=== PATIENT | female | born 1965 | race Caucasian/White ===

== ENCOUNTER 2017-10-12 18:23 | Emergency (ER) | payer MEDICARE ==
[~2017-10-12] VITALS: Ht 167.6 cm; Wt 113.4 kg
[~2017-10-12 18:23] MED LIST: BUPROBAN150 MG PO; CLONAZEPAM0.5 MG PO; CYCLOBENZAPRINE10 MG PO; CYMBALTA60 MG PO; DEPAKOTE ER250 MG PO; DIPHENOXYLATE-1 EAC2; DYAZIDE 37.5-21 EACH; EFFEXOR XR75 MG PO; ELMIRON100 MG; FLONASE; GELNIQUE30 GM; GELNIQUE30 GM TOP; LEFLUNOMIDE20 MG PO; LISINOPRIL-HCT1 EACH PO; LISINOPRIL40 MG PO; MACROBID 100MG100 MG; MIRALAX17 G1; MYRBETRIQ25 MG PO; MYRBETRIQ50 MG PO; NEURONTIN300 MG PO; NEXIUM40 MG PO; NORCO 10-325 T1 EACH PO; PLAQUENIL200 MG PO; PROAIR HFA INH8.5 GM INH; SEROQUEL50 MG PO; TYLENOL # 31 EA PO; Z BUPROPION HCL MT; Z REQUIP; Z.0.ACYCLOVIR400 MG; Z.0.ACYCLOVIR400 MG MT; Z.0.AMBIEN10 MG; Z.0.BENICAR40 MG; Z.0.BENICAR40 MG MT; Z.0.COLACE100 MG MT; Z.0.CYMBALTA30 MG MT; Z.0.CYMBALTA60 MG; Z.0.CYMBALTA60 MG MT; Z.0.DICYCLOMINE HCL2; Z.0.DICYCLOMINE HCL2 MT; Z.0.ELMIRON100 MG; Z.0.ELMIRON100 MG MT; Z.0.ENABLEX15 MG; Z.0.ENABLEX15 MG MT; Z.0.GABAPENTIN300 MG MT; Z.0.NEURONTIN300 MG; Z.0.NORCO 10-325 T1; Z.0.NORCO 10-325 T1 MT; Z.0.NORVASC5 MG; Z.0.PROTONIX40 MG; Z.0.TORADOL10 MG; Z.0.VOLTAREN100 GM; Z.0.VOLTAREN100 GM TOP; Z.0.WELLBUTRIN SR150; Z.1.TIZANIDINE HCL4; ZANAFLEX4 M1 PO; [UNRECOGNIZED DRUG - OTHER]; [UNRECOGNIZED DRUG - OTHER]; [UNRECOGNIZED DRUG - OTHER]; [UNRECOGNIZED DRUG - OTHER] PR
[2017-10-12 19:21] LABS: BILIRUBIN,URINE NEGATIVE (NEGATIVE); KETONES,URINE NEGATIVE (NEGATIVE); LEUKOCYTE ESTERASE ,URINE NEGATIVE (NEGATIVE); NITRITE,URINE NEGATIVE (NEGATIVE); PROTEIN,URINE DIPSTICK NEGATIVE (NEGATIVE); URINE UROBILINOGEN 0.2 mg/dL (0.2 - 1)
[2017-10-12 19:22] LABS: CLARITY,URINE CLEAR (CLEAR); COLOR,URINE YELLOW (YELLOW)
[2017-10-12 19:34] LABS: BACTERIA,URINE FEW /HPF; EPITHELIAL CELLS,URINE FEW /LPF; MUCUS,URINE MODERATE (RARE); RBC,URINE 0-5 /HPF (0-5); WBC,URINE (MAN) 0-5 /HPF (0-5)
[2017-10-30] MEDS ORDERED: SKELAXIN800 MG PO (15:56)
[2017-10-30] MEDS ORDERED: LEVAQUIN500 MG PO (15:56)
== END 2017-10-12 22:37 | disposition home or self-care (01) ==
LOC: ER 18:23
DX: N30.20 Other chronic cystitis without hematuria (principal)
CPT/HCPCS: 81001; 87086; 99283

== ENCOUNTER → 2017-10-31 | Day surgery (SDC) | payer MEDICARE, OTHER ==
[2017-10-30 16:25] LABS: ANION GAP 12.8 mmol/L (8-16); CALCIUM 9.9 mg/dL (8.4-10.2); CREATININE, SERUM 1.34 mg/dL (0.57-1.11); POTASSIUM 3.8 mmol/L (3.5-5.1)
[~2017-10-31] MED LIST changes: +BELLADONNA/OPIUM 60 MG SUPP PR ONE; +BOTULINUM TOXIN TYPE A 100 UNIT VIAL IM ONE; +DEXAMETHASONE SOD PHOS INJ 4 MG/ML VIAL ONE; +FENTANYL CITRATE/PF 100MCG/2 ML INJ ONE; +GENTAMICIN 80MG/NS 100 ML 200 ML IV ONE; +IOPAMIDOL 610MG/1ML 300 MG/ML VIAL IV ONE; +LEVAQUIN500 MG PO; +LIDOCAINE HCL 2% LOCAL INJ 5 ML SDV VIAL INJ ONE; +MIDAZOLAM HCL 2 MG/2 ML VIAL ONE; +ONDANSETRON HCL INJ 2 MG/ML VIAL ONE; +PROPOFOL IV EMULSION 10 MG/ML 20 ML VIAL ONE; +SEVOFLURANE INHAL SOLN 250 ML PEN BTL ONE; +SKELAXIN800 MG PO
--- NOTE | 2017-12-18 06:26 | Operative Report ---
DATE OF PROCEDURE: October 31, 2017 PREOPERATIVE DIAGNOSES 1. Refractory urge incontinence. 2. Urinary tract infections. 3. Mild rectocele. 4. Atrophic (senile) vaginitis. POSTOPERATIVE DIAGNOSES 1. Refractory urge incontinence. 2. Urinary tract infections. 3. Mild rectocele. 4. Atrophic (senile) vaginitis. OPERATIONS PERFORMED 1. Cystourethroscopy with bilateral ureteral catheterization and retrograde ureteropyelography (separate procedure performed to evaluate the upper tracts in light of the recurrent urinary tract infections). 2. Interpretation of retrograde ureteropyelography. 3. Supervision of fluoroscopy. No radiologist present. 4. Cystourethroscopy with intravesical injection of Botox (separate procedure performed for the refractory incontinence). 1. Pelvic examination under anesthesia. ANESTHESIA: General. COMPLICATIONS: None. CLINICAL SUMMARY: Antionette Bearden is a 52-year-old woman with the above preoperative diagnoses. She desires another Botox treatment. She is aware of the risks of bleeding, infection, injury to adjacent structures, need for additional procedures, and elected to proceed. OPERATIVE PROCEDURE IN DETAIL: Informed consent was verified. Antionette Bearden was properly identified, taken to the operating room, placed on the cystoscopy table in supine position. Anesthesia was uneventfully begun. The patient was then carefully gently repositioned in the dorsal lithotomy position with all pressure points well padded. Her genitalia were prepared and draped in the usual sterile fashion. The 22.5-Colombian cystoscope sheath with obturator in place was atraumatically inserted into the patient's urethra and bladder was drained. Panendoscopy of the urinary bladder revealed no suspicious mucosal lesions, no tumors, no stones, and no diverticula. Normally positioned and configured ureteral orifices were identified. There were some mild trabeculations. A ureteral catheter was used to cannulate each ureter and retrograde ureteropyelograms were performed. Interpretation of retrograde ureteropyelography: Contrast was instilled in retrograde fashion bilaterally. There were no tumors, no stones, and no diverticula. Unobstructed drainage was observed bilaterally fluoroscopically. Botox was constituted in sterile saline and injected in equal aliquots of 1 mL each throughout the supratrigonal bladder. There was no significant bleeding. The patient's bladder was then drained. Cystoscope was withdrawn. Pelvic examination under anesthesia revealed a mild rectocele and atrophic (senile) vaginitis. There were no suspicious mucosal lesions. There were no palpable pelvic masses that could be appreciated. The patient was then uneventfully reversed from anesthesia and taken to the recovery room in stable condition. Explicit postoperative instructions were given. We will follow the patient up in the office. Job#: [id number] CF
== END | disposition home or self-care (01) ==
LOC: OR 08:13
PROVIDERS: ATTEND Urology
DX: N39.41 Urge incontinence (principal); N39.0 Urinary tract infection, site not specified; N32.89 Other specified disorders of bladder; N81.6 Rectocele; N95.2 Postmenopausal atrophic vaginitis; I10 Essential (primary) hypertension; E66.9 Obesity, unspecified; G47.33 Obstructive sleep apnea (adult) (pediatric); K58.9 Irritable bowel syndrome, unspecified; F41.9 Anxiety disorder, unspecified; Z01.810 Encounter for preprocedural cardiovascular examination; Z01.812 Encounter for preprocedural laboratory examination
CPT/HCPCS: 36415; 52005; 52287; 74420; 80048; 93005; J0587; J1100; J1580; J2001; J2250; J2405; Q9967

== ENCOUNTER → 2018-03-01 | Day surgery (SDC) | payer OTHER ==
[2018-02-28 12:07] LABS: ANION GAP 14.6 mmol/L (8-16); CALCIUM 9.7 mg/dL (8.4-10.2); CREATININE, SERUM 0.97 mg/dL (0.57-1.11); POTASSIUM 4.6 mmol/L (3.5-5.1)
[~2018-03-01] MED LIST changes: +ACETAMINOPHEN 1000 MG/100 ML IV ONE; +BACITRACIN 50,000 UNIT VIAL ONE; -BOTULINUM TOXIN TYPE A 100 UNIT VIAL IM ONE; +BUPIVACAINE 0.25%/EPI 30ML SDV INJ ONE; +CEFOXITIN SOD 1 GM VIAL ONE; +EMBEDA PO; +ESTROGENS CONJUGATED VAGINAL CR 45 GM TUBE PV ONE; +HORIZANT600 MG PO; +INDERAL LA60 MG PO; +METHYLENE BLUE 1% INJ 10 ML VIAL INJ ONE; +PRILOSEC10 M1 PO; +ROCURONIUM BROMIDE 10 MG/ML 5ML VIAL ONE
--- NOTE | 2018-04-10 03:34 | Operative Report ---
DATE OF PROCEDURE: March 01, 2018 PREOPERATIVE DIAGNOSES: 1. Stress-type urinary incontinence. 2. Urinary tract infections. POSTOPERATIVE DIAGNOSES: 1. Stress-type urinary incontinence. 2. Urinary tract infections. PROCEDURES PERFORMED: 1. Implantation of mid urethral sling (separate procedure performed for the stress-type incontinence). 2. Cystourethroscopy with bilateral ureteral catheterization and retrograde ureteropyelography (separate procedure performed for the urinary tract infections). 3. Interpretation of retrograde ureteropyelography. 4. Supervision of fluoroscopy. No radiologist present. GENERAL ROAD SUPERVISOR: Lynnette Dunne MD. COMPLICATIONS: None. CLINICAL SUMMARY: Antionette Bearden is a 53-year-old woman with very complicated urological history. She has had multiple InterStim implants. She has also had urinary tract infections. She is believed to not void normally. She was believed to have some degree of neurogenic bladder. She is prepared to do intermittent catheterizations for incomplete emptying if it should occur. She is tired of being wet and wants to try a mid urethral sling. She is aware of the risks of bleeding, infection, injury to adjacent structures, need for additional procedures and elected to proceed. Urodynamic study revealed a dysfunctional voider. OPERATIVE PROCEDURE IN DETAIL: Informed consent was verified. Antionette Bearden was properly identified, taken to the operating room, placed on the operating table in supine position. Anesthesia was uneventfully begun. The patient was then carefully and gently repositioned in the dorsal lithotomy position with all pressure points well padded. Her genitalia and abdomen were shaved and perineum were shaved, prepared and draped in usual sterile fashion. Labial stay sutures were placed. A Fleming catheter was placed. Marcaine with epinephrine was utilized to infiltrate submucosally along the anterior bladder wall. A midline incision was made overlying the urethra. We then developed bilateral vaginal wall small flaps that would accommodate the finger. Once this was performed, we were able to get posterior to both obturator foramina. We then utilized Marcaine with epinephrine to infiltrate our path. Stab wounds were made in each groin crease. We then utilized the Coloplast TOT system. We first placed the needle on the left hand side and then the right hand side. Care was taken to hug the medial surface of the obturator foramen and from the inside, a finger was utilized to guide the needle out of the incision thus ensuring no injury to the bladder or any other organ was performed. After bringing the needle out through the midline incision, we placed one end of the sling material and brought it out through that stab incision. An identical procedure was performed on the right hand side. The sling was then brought into position at the level of the mid urethra. Care was taken to place a clamp between the urethra and the sling thus ensuring a non-lifting, non-constricting, non-obstructing sling. Copious irrigation was performed. A midline incision was then approximated with interrupted absorbable sutures. The sling excess was cut to the level just below the stab incisions in the groin and those incisions were approximated with subcuticular suture. The Fleming catheter was removed. The cystoscope was inserted atraumatically with the obturator. Panendoscopy revealed grade 1 to 2 trabeculations, but no tumors, no stones and no diverticula. Normally positioned and configured ureteral orifices were identified. Ureteral catheter was used to cannulate each ureter and retrograde ureteropyelograms were performed. Interpretation of retrograde ureteropyelography: Contrast was instilled in retrograde fashion bilaterally. There were no tumors, no stones and no diverticula. Unobstructed drainage was observed bilaterally fluoroscopically. The patient's bladder was drained. The cystoscope was withdrawn. Vaginal packing was placed. Labial stay sutures were removed and the patient was uneventfully reversed from anesthesia and taken to recovery room in stable condition. There were no complications during the procedure. She tolerated the procedure well. The procedure was made more complicated by the patient's significant morbid obesity. We will continue to monitor the patient closely. We will plan on following the patient up with bladder residual checks and of course follow the patient on indefinite basis for her complex urological condition. Job#: [id number] JOSE ALEJANDRO
== END | disposition home or self-care (01) ==
LOC: OR 09:38
PROVIDERS: ATTEND Urology
DX: N39.3 Stress incontinence (female) (male) (principal); N39.0 Urinary tract infection, site not specified; N32.89 Other specified disorders of bladder; E66.01 Morbid (severe) obesity due to excess calories; G89.29 Other chronic pain; G47.33 Obstructive sleep apnea (adult) (pediatric); I10 Essential (primary) hypertension; K58.9 Irritable bowel syndrome, unspecified; K21.9 Gastro-esophageal reflux disease without esophagitis; F41.9 Anxiety disorder, unspecified; F31.9 Bipolar disorder, unspecified; Z01.810 Encounter for preprocedural cardiovascular examination; Z01.812 Encounter for preprocedural laboratory examination
CPT/HCPCS: 36415; 52005; 57288; 74420; 80048; 93005; C1758; C1763; J0694; J1100; J1580; J2001; J2250; J2405; Q9967

== ENCOUNTER → 2018-12-04 | Day surgery (SDC) | payer MEDICARE, OTHER ==
[~2018-12-04] MED LIST changes: -ACETAMINOPHEN 1000 MG/100 ML IV ONE; -BACITRACIN 50,000 UNIT VIAL ONE; +BELLADONNA/OPIUM 30 MG SUPP RC ONE; -BELLADONNA/OPIUM 60 MG SUPP PR ONE; +BOTULINUM TOXIN TYPE A 100 UNIT VIAL IM ONE; -BUPIVACAINE 0.25%/EPI 30ML SDV INJ ONE; -CEFOXITIN SOD 1 GM VIAL ONE; +ELMIRON100 MG PO; -ESTROGENS CONJUGATED VAGINAL CR 45 GM TUBE PV ONE; +GENTAMICIN 80MG/NS 100 ML 100 ML IV ONE; -GENTAMICIN 80MG/NS 100 ML 200 ML IV ONE; +INFLECTRA INJ; +LEVOFLOXACIN 500MG/D5W 100ML 100 ML IV ONE; +LIDOCAINE TOP; -METHYLENE BLUE 1% INJ 10 ML VIAL INJ ONE; -MIDAZOLAM HCL 2 MG/2 ML VIAL ONE; +MOBIC7.5 MG PO; +MORPHINE SULFATE INJ 4 MG/ML INJ 1ML ONE; -ONDANSETRON HCL INJ 2 MG/ML VIAL ONE; +ONDANSETRON HCL INJ 2MG/ML 2ML 2 MG/ML VIAL ONE; -ROCURONIUM BROMIDE 10 MG/ML 5ML VIAL ONE; +SPIRONOLACTONE25 MG PO; +VITAMIN D PO
--- OUTSIDE RECORDS SUMMARY | 2018-12-04 09:43 | XMS REPORT | Clinical Summary ---
Author Author [facility] Address Unknown Phone Unavailable Care Team Providers Care Residential Driver Name Role Phone Monica Lee MD PCP Allergies Not on File Medications Not on file Active Problems Not on file Encounters Care Team Description Date Type Specialty Mackenzie Chaudhari MD Polyneuropathy in other diseases classified elsewhere (HCC) (Primary Dx) 11/11/2018 Transcribe Physical Therapy Orders after 12/03/2017 Social History Date Tobacco Use Types Packs/Day Years Used Never Assessed Sex Assigned at Date Recorded Not on file Industry Job Start Date Occupation Not on file Not on file Not on file Travel End Travel History Travel Start No recent travel history available. Last Filed Vital Signs Not on file Plan of Treatment Health Maintenance Due Date Last Done Comments CERVICAL CANCER SCREENING 01/22/1985 BREAST CANCER SCREENING 01/22/2014 COLON CANCER SCREENING 01/22/2014 SHINGLES VACCINES (1 of 01/22/2014 2) INFLUENZA VACCINE 05/22/2018 Results Not on fileafter 12/03/2017 Insurance Payer Benefit Subscriber ID Type Phone Address Plan / Group UHC MEDICARE UHC DUAL xxxxxxxxx HMO COMPLETE [facility]
--- OUTSIDE RECORDS SUMMARY | 2018-12-04 09:43 | XMS REPORT ---
[facility] Address Unknown Phone Unavailable Care Team Providers Care Cell Plasterer Name Role Phone Unavailable Unavailable Payers Payer Name Policy Type Policy Number Effective Date Expiration Date Problems This patient has no known problems. Allergies, Adverse Reactions, Alerts Allergy Name Allergy Type Status Severity Reaction(s) Onset Date Inactive Date Treating Clinician Comments potassium DA Active U 2017-11-02 00:00:00 ibuprofen DA Active U 2017-11-02 00:00:00 cephalexin DA Active SV 2017-11-02 00:00:00 Medications This patient has no known medications.
[2018-12-04 13:20] VITALS: BP 129/83
--- NOTE | 2018-12-23 08:47 | Operative Report ---
DATE OF PROCEDURE: 12/04/2018 SURGEON: Junaid Dunne MD PREOPERATIVE DIAGNOSES: 1. Refractory urge incontinence. 2. Neurogenic bladder. 3. Urinary tract infections. POSTOPERATIVE DIAGNOSES: 1. Refractory urge incontinence. 2. Neurogenic bladder. 3. Urinary tract infections. 4. Atrophic (senile) vaginitis. OPERATIONS PERFORMED: 1. Cystourethroscopy with bilateral ureteral catheterization and retrograde ureteropyelography (surgery performed for the urinary tract infections). 2. Interpretation of retrograde ureteropyelography. 3. Supervision of fluoroscopy, no radiologist was present. 4. Cystourethroscopy with intravesical injection of Botox (surgery performed for the incontinence in neurogenic bladder). 5. Pelvic examination under anesthesia. ANESTHESIA: General. COMPLICATIONS: None. CLINICAL SUMMARY: Antionette Bearden is a 53-year-old woman with the above preoperative diagnoses. The patient seems to not be emptying her bladder, probably she does not relax her sphincter in coordination with her bladder contractions. She is brought to the operating room to perform Botox to help with her incontinence. She understands she will need to catheterize 5 times daily postoperatively. She is aware of the risks of bleeding, infection, injury to adjacent structures, need for further procedures and elected to proceed. OPERATIVE PROCEDURE IN DETAIL: Informed consent was verified. Antionette Bearden was properly identified, taken to the operating room, placed on the cystoscopy table in supine position. Anesthesia was uneventfully begun. The patient was then carefully gently repositioned in the dorsal lithotomy position with all pressure points were well padded. Her genitalia were prepped and draped in usual sterile fashion. Cystoscope sheath with obturator in place was atraumatically inserted into the patient's urethra and bladder was drained. Panendoscopy of the urinary bladder revealed no suspicion mucosal lesions. No tumors, no stones, and no diverticulum. Normally positioned configured ureteral orifices were identified. The ureteral catheter was used to cannulate each ureter and retrograde ureteropyelogram was performed. Interpretation of Retrograde Ureteropyelography: Contrast was instilled in retrograde fashion bilaterally. There were no tumors, no stones, and no diverticulum. Unobstructed drainage was observed bilaterally fluoroscopically. Botox 200 units were dissolved in 20 mL of sterile saline. The Botox was injected in 1 mL aliquots throughout the supratrigonal bladder working around the heavy trabeculations that were present. The patient's bladder was drained. Cystoscope was withdrawn. A pelvic examination under anesthesia revealed no cystocele, no rectocele. There was atrophic (senile) vaginitis. No abnormal palpable pelvic masses could be appreciated. The patient was then uneventfully reversed from anesthesia and taken to recovery room in stable condition. There were no complications of the procedure. The patient tolerated the procedure well. PLAN: 1. The patient will need to self catheterize at least 5 times daily and as needed on top of that with 14-Pashto hydrophilic female catheters. 2. The patient's catheterization needs to be done sterilely due to her history of recurrent urinary tract infections. MD STEFANIE Wu/SEB /[id number]
== END | disposition home or self-care (01) ==
LOC: OR 09:40
PROVIDERS: ATTEND Urology
DX: N39.41 Urge incontinence (principal); N31.9 Neuromuscular dysfunction of bladder, unspecified; N32.89 Other specified disorders of bladder; N39.0 Urinary tract infection, site not specified; N95.2 Postmenopausal atrophic vaginitis; Q61.3 Polycystic kidney, unspecified; G61.81 Chronic inflammatory demyelinating polyneuritis; G47.33 Obstructive sleep apnea (adult) (pediatric); I10 Essential (primary) hypertension; F41.9 Anxiety disorder, unspecified; Z88.1 Allergy status to other antibiotic agents; Z88.8 Allergy status to other drugs, medicaments and biological substances
CPT/HCPCS: 52005; 52287; 74420; 93005; J0587; J1100; J1580; J1956; J2001; J2270; J2405; J2704; Q9967

== ENCOUNTER → 2019-04-11 | Day surgery (SDC) | payer MEDICARE, OTHER ==
[2019-04-10 17:06] LABS: ANION GAP 14.9 mmol/L (8-16); CALCIUM 9.9 mg/dL (8.4-10.2); CREATININE, SERUM 1.32 mg/dL (0.57-1.11); POTASSIUM 4.9 mmol/L (3.5-5.1)
[~2019-04-11] MED LIST changes: +B&O 60MG R/S 60 MG SUPP PR ONE; -BELLADONNA/OPIUM 30 MG SUPP RC ONE; -BOTULINUM TOXIN TYPE A 100 UNIT VIAL IM ONE; +BUPIVACAINE 0.5%/EPI 30 ML SDV INJ ONE; +BUPIVACAINE HCL 0.5% 10ML MPF VIAL INJ ONE; +CEFAZOLIN SOD 1 GM/NS 50ML 50 ML IV ONE; -INFLECTRA INJ; +INFLECTRA IV; -LEVOFLOXACIN 500MG/D5W 100ML 100 ML IV ONE; +MIDAZOLAM HCL 2 MG/2 ML VIAL ONE; -MORPHINE SULFATE INJ 4 MG/ML INJ 1ML ONE
--- OUTSIDE RECORDS SUMMARY | 2019-04-11 07:05 | XMS REPORT | Clinical Summary ---
Author Author [facility] Address Unknown Phone Unavailable Care Team Providers Care Shuttle Hand Name Role Phone Monica Lee MD PCP Allergies Not on File Medications Not on file Active Problems Not on file Encounters Care Team Description Date Type Specialty Mackenzie Chaudhari MD Polyneuropathy in other diseases classified elsewhere (HCC) (Primary Dx) 11/11/2018 Transcribe Physical Therapy Orders after 04/10/2018 Social History Date Tobacco Use Types Packs/Day Years Used Never Assessed Sex Assigned at Date Recorded Not on file Industry Job Start Date Occupation Not on file Not on file Not on file Travel End Travel History Travel Start No recent travel history available. Last Filed Vital Signs Not on file Plan of Treatment Health Maintenance Due Date Last Done Comments BREAST CANCER SCREENING 01/22/2014 COLONOSCOPY SCREENING 01/22/2014 SHINGLES VACCINES (#1) 01/22/2014 INFLUENZA VACCINE 05/22/2019 Results Not on fileafter 04/10/2018 Insurance Type Payer Benefit Subscriber ID Effective Phone Address Plan / Dates Group O UHC MEDICARE UHC DUAL xxxxxxxxx 2017-P COMPLETE resent [facility]
[2019-04-11 11:55] VITALS: BP 141/98
--- NOTE | 2019-05-23 03:43 | Operative Report ---
DATE OF PROCEDURE: 04/11/2019 SURGEON: Junaid Dunne MD PREOPERATIVE DIAGNOSES: 1. Chronic urinary retention. 2. Urinary tract infections. 3. Cystocele. 4. Rectocele. 5. Urethral hypermobility. 6. Atrophic (senile) vaginitis. OPERATION PERFORMED: 1. Cystourethroscopy with bilateral ureteral catheterization and retrograde ureteropyelography (separate procedure performed for the urinary tract infections). 2. Interpretation of retrograde ureteropyelography. 3. Supervision of fluoroscopy, no radiologist present. 4. Cystotomy and cystostomy (separate procedure performed for the chronic urinary retention). 5. Pelvic examination under anesthesia. ANESTHESIA: General. COMPLICATIONS: None. CLINICAL SUMMARY: Antionette Bearden is a 54-year-old woman with chronic severe bladder problems. The patient has had a history of InterStim implantation. The patient has had recurrent urinary tract infections. She has had numerous Botox injections. She has had chronic urinary retention. Intermittent catheterizations were proving difficult for her and she elected to proceed with cystostomy placement as planned. She is aware of the risks of bleeding, infection, injury to adjacent structures, need for additional procedures and elected to proceed. OPERATIVE PROCEDURE IN DETAIL: Informed consent was verified. Antionette Bearden was properly identified, taken to the operating room, placed on the cystoscopy table in supine position. Anesthesia was uneventfully begun. The patient was then carefully gently repositioned in dorsal lithotomy position with all pressure points well padded. Her abdomen and genitalia were prepared and draped in usual sterile fashion. The cystoscope sheath was inserted into the patient's urethra and bladder was drained. Panendoscopy revealed no suspicious mucosal lesions, no tumors, no stones, and no diverticula. Trabeculations were noted. Ureteral catheter was used to cannulate each ureter and retrograde ureteropyelograms were performed. Interpretation of retrograde ureteropyelography, contrast was instilled in retrograde fashion bilaterally. There were no tumors, no stones, and no diverticula. Unobstructed drainage was observed fluoroscopically. A modified Rain sound was utilized. This Rain sound has a hole drilled transversely near its tip. We utilized this sound to tent up the patient's bladder dome. We then made a small incision following infiltration with local anesthesia into the suprapubic subcutaneous tissues. We were able to palpate the sound. We then cut down onto the sound, we were able to pop the sound through the bladder as well as anterior midline abdominal wall fascia. We then took a Fleming catheter and utilized a heavy suture to tie the catheter to the Holey sound. The sound was then brought out. The urethra dragging along with that the Fleming catheter through, which created suprapubic tract. We then cut the suture and inflated the Fleming catheter balloon within the bladder. The Fleming catheter was then pulled in an anterior fashion to about the balloon against the anterior wall. The bladder was then drained. The suprapubic cystostomy was secured to the skin with two separate nylon sutures. Cystoscopy again was performed, verified that there was perfect hemostasis from the intravesical portion of the cystostomy tract. The patient's bladder was drained. The cystoscope was withdrawn. Pelvic examination revealed a grade 1 cystocele, grade 1 rectocele. There was urethral hypermobility and atrophic vaginitis. No abnormal palpable pelvic masses could be appreciated. There were no obvious mucosal lesions. The patient was then uneventfully reversed from anesthesia and taken to recovery room in stable condition. Explicit postoperative instructions were given. We will follow the patient up in the office in 5 to 6 weeks to change her suprapubic tube. MD STEFANIE Wu/SEB /[id number]
== END | disposition home or self-care (01) ==
LOC: OR 06:55
PROVIDERS: ATTEND Urology
DX: N39.0 Urinary tract infection, site not specified (principal); N81.10 Cystocele, unspecified; N81.6 Rectocele; N36.41 Hypermobility of urethra; N95.2 Postmenopausal atrophic vaginitis; Z98.890 Other specified postprocedural states; N32.89 Other specified disorders of bladder; G47.33 Obstructive sleep apnea (adult) (pediatric); I10 Essential (primary) hypertension; M19.90 Unspecified osteoarthritis, unspecified site; M79.7 Fibromyalgia; M06.9 Rheumatoid arthritis, unspecified; F31.9 Bipolar disorder, unspecified; Z88.1 Allergy status to other antibiotic agents; Z88.8 Allergy status to other drugs, medicaments and biological substances; Z01.810 Encounter for preprocedural cardiovascular examination; Z01.812 Encounter for preprocedural laboratory examination
CPT/HCPCS: 36415; 51040; 52005; 74420; 80048; 93005; C1758; J0690; J1100; J1580; J2001; J2250; J2405; J2704; J3010; Q9967

== ENCOUNTER → 2019-07-25 | Day surgery (SDC) | payer OTHER, MEDICARE ==
[~2019-07-25] MED LIST changes: +BOTULINUM TOXIN TYPE A 100 UNIT VIAL IM ONE; -BUPIVACAINE 0.5%/EPI 30 ML SDV INJ ONE; -BUPIVACAINE HCL 0.5% 10ML MPF VIAL INJ ONE; -CEFAZOLIN SOD 1 GM/NS 50ML 50 ML IV ONE; -DEXAMETHASONE SOD PHOS INJ 4 MG/ML VIAL ONE; -FENTANYL CITRATE/PF 100MCG/2 ML INJ ONE; -GENTAMICIN 80MG/NS 100 ML 100 ML IV ONE; +GENTAMICIN 80MG/NS 100 ML 200 ML IV ONE; +IOPAMIDOL 300MG/ML 50ML INFUS..BTL IV ONE; -IOPAMIDOL 610MG/1ML 300 MG/ML VIAL IV ONE
[2019-07-25 13:30] LABS: ANION GAP 14.3 mmol/L (8-16); CALCIUM 9.9 mg/dL (8.4-10.2); CREATININE, SERUM 1.06 mg/dL (0.57-1.11); POTASSIUM 4.3 mmol/L (3.5-5.1)
[2019-07-25 16:25] VITALS: BP 108/82
--- NOTE | 2019-10-04 23:30 | Operative Report ---
DATE OF PROCEDURE: 07/25/2019 SURGEON: Junaid Dunne MD PREOPERATIVE DIAGNOSES: 1. Refractory urge incontinence. 2. Urinary tract infections. 3. Atrophic vaginitis. POSTOPERATIVE DIAGNOSES: 1. Refractory urge incontinence. 2. Urinary tract infections. 3. Atrophic vaginitis. OPERATIONS PERFORMED: 1. Cystourethroscopy with bilateral ureteral catheterization and retrograde ureteropyelography (separate procedure performed for the urinary tract infections). 2. Interpretation of retrograde ureteropyelography. 3. Supervision of fluoroscopy, no radiologist present. 4. Pelvic examination under anesthesia. ANESTHESIA: General. COMPLICATIONS: None. CLINICAL SUMMARY: Antionette Bearden is a complicated 54-year-old woman with a longstanding urological history. She has the preoperative diagnoses above and is brought for the above procedures. She is aware of the risks of bleeding, infection, injury to adjacent structures, need for additional procedures and elected to proceed. The patient has had a history of InterStim implant. She has had a history of needing intermittent catheterizations. She has had a history of suprapubic cystostomy and she knows that intermittent catheterizations may be required. OPERATIVE PROCEDURE IN DETAIL: Informed consent was verified. Antionette Bearden was properly identified, taken to the operating room, placed on the cystoscopy table in supine position. Anesthesia was uneventfully begun. The patient was then carefully and gently repositioned in the dorsal lithotomy position with all pressure points well padded. Her genitalia were prepared and draped in usual sterile fashion. The cystoscope sheath with obturator in place was atraumatically inserted into the patient's urethra and the bladder was drained. Topete endoscopy of the urinary bladder revealed no suspicious mucosal lesions, no tumors, no stones, no diverticula. There was some blanching noted and very mild erythema. Normally positioned and configured ureteral orifices were identified. An 8-Sami catheter was used to cannulate each ureter and retrograde ureteral pyelograms were performed. Interpretation of retrograde ureteropyelography contrast was instilled in retrograde fashion bilaterally. There were no tumors, no stones, and no diverticula. Unobstructed drainage was observed bilaterally fluoroscopically. Botox was then dissolved in sterile saline and injected in equal aliquots in an even distribution throughout the supratrigonal bladder. The patient's bladder was then drained. Cystoscope was withdrawn. Pelvic examination revealed atrophic vaginitis. There were no palpable pelvic masses could be appreciated. There were no obvious mucosal lesions. The patient was then uneventfully reversed from anesthesia and taken to recovery room in stable condition. Explicit postop instructions were given. We will follow the patient up in the office. MD STEFANIE Wu/SEB /[id number]
== END | disposition home or self-care (01) ==
LOC: OR 12:19
PROVIDERS: ATTEND Urology
DX: N30.10 Interstitial cystitis (chronic) without hematuria (principal); N39.46 Mixed incontinence; N95.2 Postmenopausal atrophic vaginitis; N31.9 Neuromuscular dysfunction of bladder, unspecified; N28.1 Cyst of kidney, acquired; I12.9 Hypertensive chronic kidney disease with stage 1 through stage 4 chronic kidney disease, or unspecified chronic kidney disease; N18.9 Chronic kidney disease, unspecified; N36.41 Hypermobility of urethra; N32.81 Overactive bladder; E66.9 Obesity, unspecified; M06.9 Rheumatoid arthritis, unspecified; G61.81 Chronic inflammatory demyelinating polyneuritis; Z88.1 Allergy status to other antibiotic agents; Z88.8 Allergy status to other drugs, medicaments and biological substances; Z68.37 Body mass index [BMI] 37.0-37.9, adult
CPT/HCPCS: 36415; 52005; 74420; 80048; 93005; J0587; J1580; J2001; J2250; J2405; J2704; Q9967

== ENCOUNTER → 2020-06-18 | Day surgery (SDC) | payer OTHER, MEDICARE ==
[2020-06-14 13:34] LABS: ANION GAP 15.4 mmol/L (8-16); CALCIUM 10.2 mg/dL (8.4-10.2); CREATININE, SERUM 1.31 mg/dL (0.57-1.11); POTASSIUM 4.4 mmol/L (3.5-5.1)
[~2020-06-18] MED LIST changes: +AMITRIPTYLINE100 MG PO; +BUPROPION HCL100 MG PO; +BUSPIRONE HCL5 MG PO; +DEXAMETHASONE SOD PHOS INJ 4 MG/ML VIAL ONE; +GABAPENTIN400 MG PO; -GENTAMICIN 80MG/NS 100 ML 200 ML IV ONE; +HYDROCODONE/APAP 10MG-325MG TAB ONE; +LEVOFLOXACIN 500MG/D5W 100ML 100 ML IV ONE; +LIDOCAINE HCL 2% JELLY 5 ML TUBE ONE; -LIDOCAINE HCL 2% LOCAL INJ 5 ML SDV VIAL INJ ONE
[2020-06-18 12:47] VITALS: BP 119/66
--- NOTE | 2020-06-19 04:43 | Operative Report ---
DATE OF PROCEDURE: 06/18/2020 SURGEON: Junaid Dunne MD PREOPERATIVE DIAGNOSES: 1. Refractory urge incontinence. 2. Urinary tract infections. 3. Atrophic vaginitis. POSTOPERATIVE DIAGNOSES: 1. Refractory urge incontinence. 2. Urinary tract infections. 3. Atrophic vaginitis. 4. Interstitial cystitis. OPERATIVE PERFORMED: 1. Cystourethroscopy with hydrodistention (separate procedure performed for interstitial cystitis). 2. Cystourethroscopy with transurethral implantation and Botox (separate procedure performed to relieve the refractory urge incontinence. 3. Cystourethroscopy with bilateral ureteral catheterization and retrograde ureteropyelography (separate procedure performed to evaluate the upper tracts in light of the urinary tract infections). 4. Interpretation of retrograde ureteropyelography. 5. Supervision of fluoroscopy, no radiologist present. 6. Pelvic examination under anesthesia. ANESTHESIA: General. COMPLICATIONS: None. CLINICAL SUMMARY: Antionette Bearden is a 55-year-old woman with a complex history. Please refer to the voluminous chart both in the office and in this facility. She is brought for Botox injections and indicated procedures. She is aware of the risks of bleeding, infection, injury to adjacent structures, need for additional procedures and elected to proceed. She also understands she may need to be doing intermittent catheterizations as has been established previously. OPERATIVE PROCEDURE IN DETAIL: Informed consent was verified. Antionette Bearden was properly identified taken to the operating room, placed on the cystoscopy table in supine position. Anesthesia was uneventfully begun. The patient was then carefully gently repositioned in dorsal lithotomy position. All pressure points well padded. Her genitalia were prepared and draped in usual sterile fashion. The cystoscope sheath was inserted in the patient's bladder and the bladder was drained. Panendoscopy revealed erythema along the posterior bladder wall. This erythema seemed to be developed from the initial distention of the bladder for normal cystoscopy. Therefore, we decided to perform a hydrodistention to evaluate the extent of this problem. The bladder was filled with sterile saline to 80 cm of water height and held in place for exactly 2 minutes by the clock. This revealed a bladder capacity under anesthesia of only 400 mL consistent with severely overactive bladder. An 8-Setswana catheter was used to cannulate each ureter and retrograde ureteropyelograms were performed. Interpretation of retrograde ureteropyelography contrast was instilled in retrograde fashion bilaterally. There were no tumors no stones, and no diverticula. Unobstructed drainage was observed bilaterally fluoroscopically. A 100 units of Botox were dissolved in 10 mL of sterile saline. We then proceeded to inject the Botox and have 1 mL aliquots in an even distribution throughout the supratrigonal bladder. The patient's bladder was drained. The cystoscope was withdrawn. The belladonna and opium suppository were placed after pelvic examination. The pelvic examination revealed normally atrophic vaginitis. No abnormal palpable pelvic masses could be appreciated and there were no obvious mucosal lesions. The patient was then uneventfully reversed from anesthesia and taken to recovery room in stable condition. There were no complications to the procedure. She tolerated the procedure well. Explicit postop instructions were given. We will follow the patient up in the office. Junaid Dunne MD [facility]/MODL /[id number] cc: Monica Lee MD
== END | disposition home or self-care (01) ==
LOC: OR 08:55
PROVIDERS: ATTEND Urology
DX: N39.46 Mixed incontinence (principal); N30.10 Interstitial cystitis (chronic) without hematuria; N31.9 Neuromuscular dysfunction of bladder, unspecified; Q61.3 Polycystic kidney, unspecified; N95.2 Postmenopausal atrophic vaginitis; G47.33 Obstructive sleep apnea (adult) (pediatric); I10 Essential (primary) hypertension; M06.9 Rheumatoid arthritis, unspecified; F31.9 Bipolar disorder, unspecified; Z88.1 Allergy status to other antibiotic agents; Z88.8 Allergy status to other drugs, medicaments and biological substances; Z91.048 Other nonmedicinal substance allergy status; Z01.810 Encounter for preprocedural cardiovascular examination; Z01.812 Encounter for preprocedural laboratory examination; Z11.59 Encounter for screening for other viral diseases
CPT/HCPCS: 36415; 52260; 52287; 74420; 80048; 93005; C1758; J0587; J1100; J1956; J2001; J2250; J2405; J2704; Q9967; U0002

== ENCOUNTER → 2020-09-15 | Day surgery (SDC) | payer OTHER, MEDICARE ==
[2020-09-10 16:06] LABS: ANION GAP 10.3 mmol/L (8-16); CALCIUM 9.1 mg/dL (8.4-10.2); CREATININE, SERUM 1.12 mg/dL (0.57-1.11); POTASSIUM 4.3 mmol/L (3.5-5.1)
[~2020-09-15] MED LIST changes: -DYAZIDE 37.5-21 EACH; +DYAZIDE 37.5-21 EACH PO; +FENTANYL CITRATE/PF 100MCG/2 ML INJ ONE; -HYDROCODONE/APAP 10MG-325MG TAB ONE; -LEVOFLOXACIN 500MG/D5W 100ML 100 ML IV ONE; -LIDOCAINE HCL 2% JELLY 5 ML TUBE ONE; +LIDOCAINE HCL 2% LOCAL INJ 5 ML SDV VIAL INJ ONE; +VANCOMYCIN 1GM/NS 250 ML 250 ML ONE
--- NOTE | 2020-09-15 07:15 | NUR ---
SPIRITUAL CARE - Pre-Surgery Assessment: Pt in bed. Pt reported supportive attention from family and friends. Intervention: [employer] Sales Person provided pastoral presence, hospitality, and sympathetic listening. Acquainted pt with availability of sales representative business courses while hospitalized. Outcome: Pt expressed appreciation for visit. No need for follow up indicated at this time. BRADNIN Judd Spiritual Care Department O: [phone]
[2020-09-15 10:15] VITALS: BP 136/80
--- NOTE | 2020-09-15 23:59 | Operative Report ---
DATE OF PROCEDURE: 09/15/2020 SURGEON: Junaid Dunne MD PREOPERATIVE DIAGNOSES: 1. Refractory urge incontinence. 2. Urinary tract infections. POSTOPERATIVE DIAGNOSES: 1. Refractory urge incontinence. 2. Urinary tract infections. 3. Grade 1 cystocele. 4. Grade 2 rectocele. 5. Atrophic (senile) vaginitis. OPERATIONS PERFORMED: 1. Cystourethroscopy with bilateral ureteral catheterization and retrograde ureteropyelography (separate procedure performed for the urinary tract infection). 2. Interpretation of retrograde pyelography, no radiologist present. 3. Supervision of fluoroscopy, no radiologist present. 4. Cystourethroscopy with intravesical injection of 200 units of Botox (separate procedure performed for the refractory incontinence). 5. Pelvic examination under anesthesia. ANESTHESIA: General. COMPLICATIONS: None. CLINICAL SUMMARY: Antionette Bearden is a complicated 55-year-old woman with a history of urinary retention, refractory incontinence, prior InterStim removal, who has been managed with Botox, which she thinks helps her. The last Botox injections three months ago. The patient did not experience adequate relief and would like a higher dose at this procedure. She is aware of the risks of bleeding, infection, injury to adjacent structures, need for intermittent catheterization, chronic urinary retention, and the usual attendant risks of surgery and anesthesia, which we discussed with her preoperatively. The patient also has had a previous history of suprapubic cystostomy, which was later removed at her insistence. OPERATIVE PROCEDURE IN DETAIL: Informed consent was verified. Antionette Bearden was properly identified, taken to the operating room, placed on the cystoscopy table in supine position. Anesthesia was uneventfully begun. The patient was then carefully and gently repositioned in the dorsal lithotomy position with all pressure points well padded. Her genitalia were prepared and draped in usual sterile fashion. The cystoscope sheath with obturator in place was atraumatically inserted into the patient's urethra. Bladder was drained. Panendoscopy of the bladder revealed no suspicious mucosal lesions, no tumors, no stones, no diverticula. Normally positioned and configured ureteral orifices were identified. Trabeculations were noted. Ureteral catheter was used to cannulate each ureter and retrograde ureteropyelograms were performed. Interpretation of retrograde ureteropyelography; contrast was instilled in retrograde fashion bilaterally. There were no tumors, no stones, and no diverticula. Unobstructed drainage was observed bilaterally fluoroscopically. A 200 units of Botox were dissolved in 20 mL of sterile saline. We then injected in 1 mL aliquots in an even distribution throughout the supratrigonal bladder. The patient's bladder was then drained. Pelvic examination under anesthesia revealed atrophic vaginitis with a grade 1 cystocele and grade 2 rectocele. No abnormal palpable pelvic masses could be appreciated. There were no obvious mucosal lesions. The patient was then uneventfully reversed from anesthesia and taken to recovery room in stable condition. There were no complications to the procedure. The patient tolerated the procedure well. Estimated blood loss was minimal. Explicit postop instructions were given and we will follow the patient up in the office in approximately one to [id number]-half months. MD STEFANIE Wu/SEB /[id number]
== END | disposition home or self-care (01) ==
LOC: OR 05:15
PROVIDERS: ATTEND Urology
DX: N39.41 Urge incontinence (principal); N39.0 Urinary tract infection, site not specified; N81.10 Cystocele, unspecified; N81.6 Rectocele; N95.2 Postmenopausal atrophic vaginitis; N32.89 Other specified disorders of bladder; G47.33 Obstructive sleep apnea (adult) (pediatric); I10 Essential (primary) hypertension; M79.7 Fibromyalgia; M06.9 Rheumatoid arthritis, unspecified; M19.90 Unspecified osteoarthritis, unspecified site; F31.9 Bipolar disorder, unspecified; Z88.1 Allergy status to other antibiotic agents; Z88.8 Allergy status to other drugs, medicaments and biological substances; Z01.810 Encounter for preprocedural cardiovascular examination; Z01.812 Encounter for preprocedural laboratory examination; Z20.828 Contact with and (suspected) exposure to other viral communicable diseases; Z87.01 Personal history of pneumonia (recurrent)
CPT/HCPCS: 36415; 52005; 52287; 74420; 80048; 93005; C1758; J0587; J1100; J2001; J2250; J2405; J2704; J3010; J3370; Q9967; U0002

== ENCOUNTER → 2020-10-14 | Day surgery (SDC) | payer MEDICARE ==
[2020-10-12 10:13] LABS: ANION GAP 14.7 mmol/L (8-16); CALCIUM 9.8 mg/dL (8.4-10.2); CREATININE, SERUM 1.13 mg/dL (0.57-1.11); POTASSIUM 4.7 mmol/L (3.5-5.1)
[~2020-10-14] MED LIST changes: +ACETAMINOPHEN/CODEINE 300MG - 30MG TAB ONE; -B&O 60MG R/S 60 MG SUPP PR ONE; -BOTULINUM TOXIN TYPE A 100 UNIT VIAL IM ONE; +BUPIVACAINE HCL 0.5% INJ 30 ML VIAL INJ ONE; +CLINDAMYCIN 300MG 50 ML IV ONE; +GENTAMICIN SULFATE 40 MG/ML 2 ML VIAL ONE; +GLYCOPYRROLATE INJ 0.2 MG/ML VIAL ONE; +HYDROMORPHONE 1MG/1ML INJ ONE; -IOPAMIDOL 300MG/ML 50ML INFUS..BTL IV ONE; +KETAMINE HCL INJ 50 MG/ML 10 ML VIAL ONE; +LEVOFLOXACIN 500MG/D5W 100ML 100 ML IV ONE; +LIDOCAINE 2%/ EPINEPHRINE 20ML MDV ONE; +LIDOCAINE HCL 2% LOCAL 20 ML VIAL ONE; +SILVER SULFADIAZINE 50GM CREAM ONE; -VANCOMYCIN 1GM/NS 250 ML 250 ML ONE
[2020-10-14 13:50] VITALS: BP 141/89
== END | disposition home or self-care (01) ==
LOC: OR 09:15
PROVIDERS: ATTEND Urology
DX: T83.711A Erosion of implanted vaginal mesh to surrounding organ or tissue, initial encounter (principal); N31.9 Neuromuscular dysfunction of bladder, unspecified; I12.9 Hypertensive chronic kidney disease with stage 1 through stage 4 chronic kidney disease, or unspecified chronic kidney disease; N18.9 Chronic kidney disease, unspecified; N36.41 Hypermobility of urethra; N95.2 Postmenopausal atrophic vaginitis; N39.46 Mixed incontinence; N28.1 Cyst of kidney, acquired; N30.10 Interstitial cystitis (chronic) without hematuria; N32.89 Other specified disorders of bladder; G47.33 Obstructive sleep apnea (adult) (pediatric); M79.89 Other specified soft tissue disorders; E66.9 Obesity, unspecified; F41.9 Anxiety disorder, unspecified; Y83.8 Other surgical procedures as the cause of abnormal reaction of the patient, or of later complication, without mention of misadventure at the time of the procedure; Z88.1 Allergy status to other antibiotic agents; Z88.8 Allergy status to other drugs, medicaments and biological substances; Z91.048 Other nonmedicinal substance allergy status; Z01.810 Encounter for preprocedural cardiovascular examination; Z01.812 Encounter for preprocedural laboratory examination; Z20.828 Contact with and (suspected) exposure to other viral communicable diseases; Z68.38 Body mass index [BMI] 38.0-38.9, adult
CPT/HCPCS: 36415; 57295; 80048; 88302; J1100; J1170; J1580; J1956; J2001 ×3; J2250; J2405; J2704; J3010; U0002

== ENCOUNTER → 2021-01-12 | Day surgery (SDC) | payer MEDICARE ==
[2021-01-10 12:07] LABS: BASOPHILS # (AUTO) 0.1 (0.0-0.1); BASOPHILS % 0.6 % (0.0-1.0); EOSINOPHILS # (AUTO) 0.2 (0.0-0.4); EOSINOPHILS % 1.8 % (0.0-6.0); HEMATOCRIT 48.9 % (34.2-44.1); HEMOGLOBIN 16.2 g/dL (12.0-16.0); LYMPHOCYTES # (AUTO) 3.2 (1.0-3.2); LYMPHOCYTES % 38.6 % (18.0-39.1); MEAN CORPUSCULAR HEMOGLOBIN 32.1 pg (28-32); MEAN CORPUSCULAR HGB CONC 33.1 g/dL (31-35); MONOCYTES # (AUTO) 0.8 (0.2-0.8); MONOCYTES % 9.2 % (4.4-11.3); NEUTROPHILS # (AUTO) 4.1 (2.1-6.9); NEUTROPHILS % 49.4 % (38.7-80.0); PLATELET COUNT 222 x10e3/uL (140-360); RED BLOOD COUNT 5.04 x10e6/uL (3.6-5.1); RED CELL DISTRIBUTION WIDTH 12.7 % (11.7-14.4)
[2021-01-10 12:31] LABS: ANION GAP 15.1 mmol/L (8-16); CALCIUM 9.7 mg/dL (8.4-10.2); CREATININE, SERUM 1.47 mg/dL (0.57-1.11); POTASSIUM 4.1 mmol/L (3.5-5.1)
[~2021-01-12] MED LIST changes: -ACETAMINOPHEN/CODEINE 300MG - 30MG TAB ONE; +AIMOVIG AU140 MG/1 M IM; +APPLE CIDER VI300 MG PO; +B&O 60MG R/S 60 MG SUPP PR ONE; +BACTRIM 400-801 EACH PO; +BOTULINUM TOXIN TYPE A 100 UNIT VIAL IM ONE; -BUPIVACAINE HCL 0.5% INJ 30 ML VIAL INJ ONE; +BUSPIRONE HCL10 MG PO; -CLINDAMYCIN 300MG 50 ML IV ONE; +GENTAMICIN 80MG/NS 100 ML 200 ML IV ONE; -GENTAMICIN SULFATE 40 MG/ML 2 ML VIAL ONE; -GLYCOPYRROLATE INJ 0.2 MG/ML VIAL ONE; -HYDROMORPHONE 1MG/1ML INJ ONE; +IOPAMIDOL 300MG/ML 50ML INFUS..BTL IV ONE; -KETAMINE HCL INJ 50 MG/ML 10 ML VIAL ONE; -LEVOFLOXACIN 500MG/D5W 100ML 100 ML IV ONE; -LIDOCAINE 2%/ EPINEPHRINE 20ML MDV ONE; -LIDOCAINE HCL 2% LOCAL 20 ML VIAL ONE; +MULTI-VITAMIN1 EACH PO; -SILVER SULFADIAZINE 50GM CREAM ONE; +[UNRECOGNIZED DRUG - OTHER] TP
[2021-01-12 11:15] LABS: ANION GAP 16.5 mmol/L (8-16); CALCIUM 9.4 mg/dL (8.4-10.2); CREATININE, SERUM 1.49 mg/dL (0.57-1.11); POTASSIUM 4.5 mmol/L (3.5-5.1)
[2021-01-12 12:30] VITALS: BP 143/89
== END | disposition home or self-care (01) ==
LOC: OR 09:24
PROVIDERS: ATTEND Urology
DX: N39.46 Mixed incontinence (principal); N30.10 Interstitial cystitis (chronic) without hematuria; N31.9 Neuromuscular dysfunction of bladder, unspecified; N81.10 Cystocele, unspecified; I12.9 Hypertensive chronic kidney disease with stage 1 through stage 4 chronic kidney disease, or unspecified chronic kidney disease; N28.1 Cyst of kidney, acquired; E66.9 Obesity, unspecified; N18.9 Chronic kidney disease, unspecified; N36.41 Hypermobility of urethra; N95.2 Postmenopausal atrophic vaginitis; G47.33 Obstructive sleep apnea (adult) (pediatric); K58.9 Irritable bowel syndrome, unspecified; F31.9 Bipolar disorder, unspecified; Z01.810 Encounter for preprocedural cardiovascular examination; Z01.812 Encounter for preprocedural laboratory examination; Z20.822 Contact with and (suspected) exposure to COVID-19; Z98.890 Other specified postprocedural states
CPT/HCPCS: 36415 ×2; 52005; 52287; 74420; 80048 ×2; 85025; 93005; C1758; J0587; J1100; J1580; J2001; J2405; J2704; Q9967; U0002; J2250; J3010

== ENCOUNTER 2021-01-22 12:45 | Emergency (ER) | payer MEDICARE ==
[~2021-01-22] VITALS: Ht 167.6 cm; Wt 113.6 kg
[~2021-01-22 12:45] MED LIST changes: -B&O 60MG R/S 60 MG SUPP PR ONE; -BOTULINUM TOXIN TYPE A 100 UNIT VIAL IM ONE; -DEXAMETHASONE SOD PHOS INJ 4 MG/ML VIAL ONE; -FENTANYL CITRATE/PF 100MCG/2 ML INJ ONE; -GENTAMICIN 80MG/NS 100 ML 200 ML IV ONE; -IOPAMIDOL 300MG/ML 50ML INFUS..BTL IV ONE; -LIDOCAINE HCL 2% LOCAL INJ 5 ML SDV VIAL INJ ONE; -MIDAZOLAM HCL 2 MG/2 ML VIAL ONE; -ONDANSETRON HCL INJ 2MG/ML 2ML 2 MG/ML VIAL ONE; -PROPOFOL IV EMULSION 10 MG/ML 20 ML VIAL ONE; -SEVOFLURANE INHAL SOLN 250 ML PEN BTL ONE
[2021-01-22] MEDS ORDERED: QUETIAPINE FUM100 MG PO (13:15)
[2021-01-22 14:09] LABS: BASOPHILS % 0.7 % (0.0-1.0); EOSINOPHILS # (AUTO) 0.2 (0.0-0.4); EOSINOPHILS % 2.8 % (0.0-6.0); HEMATOCRIT 38.7 % (34.2-44.1); LYMPHOCYTES % 33.5 % (18.0-39.1); MEAN CORPUSCULAR HEMOGLOBIN 31.9 pg (28-32); MEAN CORPUSCULAR HGB CONC 33.6 g/dL (31-35); MEAN CORPUSCULAR VOLUME 94.9 fL (81-99); MONOCYTES # (AUTO) 0.7 (0.2-0.8); MONOCYTES % 11.9 % (4.4-11.3); NEUTROPHILS % 50.6 % (38.7-80.0); PLATELET COUNT 177 x10e3/uL (140-360); RED BLOOD COUNT 4.08 x10e6/uL (3.6-5.1); RED CELL DISTRIBUTION WIDTH 13.1 % (11.7-14.4)
[2021-01-22 15:47] VITALS: BP 130/94
== END 2021-01-22 15:47 | disposition home or self-care (01) ==
LOC: FSED 13:12
DX: R07.9 Chest pain, unspecified (principal); R00.2 Palpitations; I10 Essential (primary) hypertension; F31.9 Bipolar disorder, unspecified; M79.7 Fibromyalgia; G47.33 Obstructive sleep apnea (adult) (pediatric); G25.81 Restless legs syndrome
CPT/HCPCS: 36415; 71046; 80048; 82553; 84484; 85025; 93005; 99284

== ENCOUNTER → 2021-06-15 | Day surgery (SDC) | payer MEDICARE ==
[~2021-06-15] MED LIST changes: +ACETAMINOPHEN 1000 MG/100 ML 100 ML IV ONE; +BELLADONNA/OPIUM 30 MG SUPP RC ONE; +BOTULINUM TOXIN TYPE A 100 UNIT VIAL IM ONE; +CELEBREX200 MG PO; +GENTAMICIN 80MG/NS 100 ML 200 ML IV ONE; +IOPAMIDOL 300MG/ML 50ML INFUS..BTL IV ONE; +OXYBUTYNIN CHLOR5 MG PO; +QUETIAPINE FUM100 MG PO; +RANEXA500 MG PO
[2021-06-15 08:58] LABS: BASOPHILS % 0.7 % (0.0-1.0); EOSINOPHILS # (AUTO) 0.2 (0.0-0.4); EOSINOPHILS % 2.6 % (0.0-6.0); HEMATOCRIT 41.1 % (34.2-44.1); HEMOGLOBIN 13.3 g/dL (12.0-16.0); LYMPHOCYTES # (AUTO) 2.3 (1.0-3.2); LYMPHOCYTES % 40.4 % (18.0-39.1); MEAN CORPUSCULAR HEMOGLOBIN 31.6 pg (28-32); MEAN CORPUSCULAR HGB CONC 32.4 g/dL (31-35); MEAN CORPUSCULAR VOLUME 97.6 fL (81-99); MONOCYTES # (AUTO) 0.5 (0.2-0.8); MONOCYTES % 9.3 % (4.4-11.3); NEUTROPHILS # (AUTO) 2.7 (2.1-6.9); NEUTROPHILS % 46.7 % (38.7-80.0); PLATELET COUNT 208 x10e3/uL (140-360); RED BLOOD COUNT 4.21 x10e6/uL (3.6-5.1); RED CELL DISTRIBUTION WIDTH 13.5 % (11.7-14.4)
[2021-06-15 09:43] LABS: ANION GAP 12.7 mmol/L (8-16); CALCIUM 9.2 mg/dL (8.4-10.2); CREATININE, SERUM 1.24 mg/dL (0.57-1.11); POTASSIUM 3.7 mmol/L (3.5-5.1)
[2021-06-15 14:00] VITALS: BP 140/75
== END | disposition home or self-care (01) ==
LOC: OR 08:14
PROVIDERS: ATTEND Urology
DX: N39.41 Urge incontinence (principal); N95.2 Postmenopausal atrophic vaginitis; N39.0 Urinary tract infection, site not specified; E66.9 Obesity, unspecified; N28.1 Cyst of kidney, acquired; R39.14 Feeling of incomplete bladder emptying; Z68.41 Body mass index [BMI] 40.0-44.9, adult; Z88.8 Allergy status to other drugs, medicaments and biological substances; Z01.810 Encounter for preprocedural cardiovascular examination; Z01.812 Encounter for preprocedural laboratory examination; Z20.822 Contact with and (suspected) exposure to COVID-19; K21.9 Gastro-esophageal reflux disease without esophagitis; G47.33 Obstructive sleep apnea (adult) (pediatric); N81.4 Uterovaginal prolapse, unspecified; N36.41 Hypermobility of urethra; N94.10 Unspecified dyspareunia
CPT/HCPCS: 36415; 52005; 52287; 57420; 74420; 80048; 85025; 87086; 93005; C1758; J0131; J0587; J1580; Q9967; U0002

== ENCOUNTER → 2022-02-10 | Day surgery (SDC) | payer MEDICARE, OTHER ==
[2022-02-07 10:21] LABS: BASOPHILS % 0.6 % (0.0-1.0); EOSINOPHILS # (AUTO) 0.3 (0.0-0.4); EOSINOPHILS % 3.6 % (0.0-6.0); HEMATOCRIT 42.5 % (34.2-44.1); HEMOGLOBIN 13.4 g/dL (12.0-16.0); LYMPHOCYTES # (AUTO) 2.5 (1.0-3.2); LYMPHOCYTES % 35.4 % (18.0-39.1); MEAN CORPUSCULAR HGB CONC 31.5 g/dL (31-35); MEAN CORPUSCULAR VOLUME 101.4 fL (81-99); MONOCYTES # (AUTO) 0.6 (0.2-0.8); MONOCYTES % 8.2 % (4.4-11.3); NEUTROPHILS # (AUTO) 3.6 (2.1-6.9); NEUTROPHILS % 51.9 % (38.7-80.0); PLATELET COUNT 221 x10e3/uL (140-360); RED BLOOD COUNT 4.19 x10e6/uL (3.6-5.1)
[2022-02-07 10:40] LABS: ANION GAP 11.2 mmol/L (8-16); CREATININE, SERUM 1.16 mg/dL (0.57-1.11); POTASSIUM 4.2 mmol/L (3.5-5.1)
[2022-02-07 10:42] LABS: INR 0.89; PROTHROMBIN TIME 12.9 seconds (11.9-14.5)
[~2022-02-10] MED LIST changes: -ACETAMINOPHEN 1000 MG/100 ML 100 ML IV ONE; +B&O 60MG R/S 60 MG SUPP PR ONE; -BELLADONNA/OPIUM 30 MG SUPP RC ONE; +DEXAMETHASONE SOD PHOS INJ 4 MG/ML SDV ONE; +FENTANYL CITRATE/PF 100MCG/2 ML INJ ONE; +GLYCOPYRROLATE INJ 0.2 MG/ML VIAL ONE; +LIDOCAINE HCL 2% LOCAL INJ 5 ML SDV VIAL INJ ONE; +MIDAZOLAM HCL 2 MG/2 ML VIAL ONE; +ONDANSETRON HCL INJ 2MG/ML 2ML 2 MG/ML VIAL ONE; +PHENAZOPYRIDINE HCL 100 MG TAB ONE; +POVIDONE IODINE 0.05% 0.05 % ML PO ONE; +PROPOFOL IV EMULSION 10 MG/ML 20 ML VIAL ONE; +SEVOFLURANE INHAL SOLN 250 ML PEN BTL ONE; +VITAMIN D310 MCG PO
[2022-02-10 14:50] VITALS: BP 123/71
== END | disposition home or self-care (01) ==
LOC: EDBD 02-08 07:00 → OR 11:20
PROVIDERS: ATTEND Urology
DX: N39.41 Urge incontinence (principal); N39.0 Urinary tract infection, site not specified; Q61.3 Polycystic kidney, unspecified; N81.10 Cystocele, unspecified; N81.6 Rectocele; N95.2 Postmenopausal atrophic vaginitis; G47.33 Obstructive sleep apnea (adult) (pediatric); G61.81 Chronic inflammatory demyelinating polyneuritis; I72.9 Aneurysm of unspecified site; I10 Essential (primary) hypertension; E78.5 Hyperlipidemia, unspecified; K21.9 Gastro-esophageal reflux disease without esophagitis; K22.70 Barrett's esophagus without dysplasia; E66.9 Obesity, unspecified; Z88.1 Allergy status to other antibiotic agents; Z88.8 Allergy status to other drugs, medicaments and biological substances; Z01.810 Encounter for preprocedural cardiovascular examination; Z01.812 Encounter for preprocedural laboratory examination; Z20.822 Contact with and (suspected) exposure to COVID-19; Z79.899 Other long term (current) drug therapy; Z68.41 Body mass index [BMI] 40.0-44.9, adult
CPT/HCPCS: 36415; 52005; 52287; 74420; 80048; 85025; 85610; 85730; 93005; J0587; J1100; J1580; J2001; J2250; J2405; J2704; J3010; Q9967; U0002

== ENCOUNTER 2022-05-27 10:13 | Emergency (ER) | payer MEDICARE, OTHER ==
[~2022-05-27] VITALS: Ht 167.6 cm; Wt 113.4 kg
[~2022-05-27 10:13] MED LIST changes: -B&O 60MG R/S 60 MG SUPP PR ONE; -BOTULINUM TOXIN TYPE A 100 UNIT VIAL IM ONE; -DEXAMETHASONE SOD PHOS INJ 4 MG/ML SDV ONE; -FENTANYL CITRATE/PF 100MCG/2 ML INJ ONE; -GENTAMICIN 80MG/NS 100 ML 200 ML IV ONE; -GLYCOPYRROLATE INJ 0.2 MG/ML VIAL ONE; -IOPAMIDOL 300MG/ML 50ML INFUS..BTL IV ONE; -LIDOCAINE HCL 2% LOCAL INJ 5 ML SDV VIAL INJ ONE; -MIDAZOLAM HCL 2 MG/2 ML VIAL ONE; -ONDANSETRON HCL INJ 2MG/ML 2ML 2 MG/ML VIAL ONE; -PHENAZOPYRIDINE HCL 100 MG TAB ONE; -POVIDONE IODINE 0.05% 0.05 % ML PO ONE; -PROPOFOL IV EMULSION 10 MG/ML 20 ML VIAL ONE; -SEVOFLURANE INHAL SOLN 250 ML PEN BTL ONE
[2022-05-27 11:35] LABS: CLARITY,URINE CLOUDY (CLEAR); COLOR,URINE YELLOW (YELLOW)
[2022-05-27 11:36] LABS: KETONES,URINE NEGATIVE (NEGATIVE); LEUKOCYTE ESTERASE ,URINE 1+ (NEGATIVE); NITRITE,URINE POSITIVE (NEGATIVE); PROTEIN,URINE DIPSTICK 1+ (NEGATIVE); URINE UROBILINOGEN 0.2 mg/dL (0.2 - 1)
[2022-05-27 12:00] LABS: BACTERIA,URINE MANY /HPF; EPITHELIAL CELLS,URINE FEW /LPF; WBC,URINE (MAN) >50 /HPF (0-5)
[2022-05-27] MEDS ORDERED: LEVOFLOXACIN750 MG PO (12:00)
[2022-05-27 12:01] LABS: RENAL EPITHELIAL CELLS,URINE FEW; TRANSITIONAL EPI CELLS,URINE FEW
== END 2022-05-27 12:17 | disposition home or self-care (01) ==
LOC: ER 10:33
DX: R30.0 Dysuria (principal); N39.0 Urinary tract infection, site not specified; I10 Essential (primary) hypertension; F41.9 Anxiety disorder, unspecified
CPT/HCPCS: 81001; 99282

== ENCOUNTER → 2022-07-28 | Day surgery (SDC) | payer MEDICARE, OTHER ==
[2022-07-27 13:30] LABS: BASOPHILS # (AUTO) 0.1 (0.0-0.1); BASOPHILS % 0.6 % (0.0-1.0); EOSINOPHILS # (AUTO) 0.2 (0.0-0.4); EOSINOPHILS % 1.9 % (0.0-6.0); HEMATOCRIT 45.5 % (34.2-44.1); HEMOGLOBIN 14.6 g/dL (12.0-16.0); LYMPHOCYTES # (AUTO) 3.4 (1.0-3.2); LYMPHOCYTES % 38.4 % (18.0-39.1); MEAN CORPUSCULAR HEMOGLOBIN 31.9 pg (28-32); MEAN CORPUSCULAR HGB CONC 32.1 g/dL (31-35); MEAN CORPUSCULAR VOLUME 99.3 fL (81-99); MONOCYTES # (AUTO) 0.7 (0.2-0.8); NEUTROPHILS # (AUTO) 4.5 (2.1-6.9); PLATELET COUNT 218 x10e3/uL (140-360); RED BLOOD COUNT 4.58 x10e6/uL (3.6-5.1); RED CELL DISTRIBUTION WIDTH 11.9 % (11.7-14.4)
[2022-07-27 13:46] LABS: INR 0.96; PARTIAL THROMBOPLASTIN TIME 27.6 seconds (23.8-35.5); PROTHROMBIN TIME 13.7 seconds (11.9-14.5)
[2022-07-27 13:49] LABS: ANION GAP 15.3 mmol/L (8-16); CALCIUM 9.8 mg/dL (8.4-10.2); CREATININE, SERUM 1.47 mg/dL (0.57-1.11); POTASSIUM 4.3 mmol/L (3.5-5.1)
[~2022-07-28] MED LIST changes: +AMBIEN5 MG PO; +B&O 60MG R/S 60 MG SUPP PR ONE; +BOTULINUM TOXIN TYPE A 100 UNIT VIAL IM ONE; +CILOSTAZOL100 MG PO; +DEXAMETHASONE SOD PHOS INJ 4 MG/ML SDV ONE; +FENTANYL CITRATE/PF 100MCG/2 ML INJ ONE; +GENTAMICIN 80MG/NS 100 ML 200 ML IV ONE; +HYDROCODONE/APAP 10MG-325MG TAB ONE; +IOPAMIDOL 300MG/ML 50ML INFUS..BTL IV ONE; +LEVOFLOXACIN750 MG PO; +LIDOCAINE HCL 2% LOCAL INJ 5 ML SDV VIAL INJ ONE; +MECLIZINE HCL12.5 MG PO; +MEROPENEM 1 GM VIAL ONE; +ONDANSETRON HCL INJ 2MG/ML 2ML 2 MG/ML VIAL ONE; +POVIDONE IODINE 0.05% 0.05 % ML PO ONE; +PROPOFOL IV EMULSION 10 MG/ML 20 ML VIAL ONE; +SERTRALINE HCL100 MG PO; +SEVOFLURANE INHAL SOLN 250 ML PEN BTL ONE
[2022-07-28 14:00] VITALS: BP 116/70
== END | disposition home or self-care (01) ==
LOC: OR 09:04
PROVIDERS: ATTEND Urology
DX: N39.41 Urge incontinence (principal); N39.0 Urinary tract infection, site not specified; N94.10 Unspecified dyspareunia; N81.10 Cystocele, unspecified; N81.6 Rectocele; N95.2 Postmenopausal atrophic vaginitis; N32.89 Other specified disorders of bladder; N28.1 Cyst of kidney, acquired; I10 Essential (primary) hypertension; E66.9 Obesity, unspecified; Z88.1 Allergy status to other antibiotic agents; Z88.8 Allergy status to other drugs, medicaments and biological substances; Z01.810 Encounter for preprocedural cardiovascular examination; Z01.812 Encounter for preprocedural laboratory examination; Z79.899 Other long term (current) drug therapy; Z20.822 Contact with and (suspected) exposure to COVID-19; Z68.37 Body mass index [BMI] 37.0-37.9, adult
CPT/HCPCS: 0223U; 36415; 52005; 52287; 74420; 80048; 85025; 85610; 85730; 93005; C1758; J0587; J1100; J1580; J2001; J2185; J2405; J2704; J3010; Q9967

== ENCOUNTER → 2023-02-09 | Day surgery (SDC) | payer MEDICARE, OTHER ==
[2023-02-07 14:42] LABS: BASOPHILS # (AUTO) 0.1 (0.0-0.1); BASOPHILS % 0.6 % (0.0-1.0); EOSINOPHILS # (AUTO) 0.3 (0.0-0.4); EOSINOPHILS % 3.2 % (0.0-6.0); HEMATOCRIT 42.4 % (34.2-44.1); HEMOGLOBIN 13.8 g/dL (12.0-16.0); LYMPHOCYTES # (AUTO) 2.7 (1.0-3.2); LYMPHOCYTES % 32.5 % (18.0-39.1); MEAN CORPUSCULAR HEMOGLOBIN 32.6 pg (28-32); MEAN CORPUSCULAR HGB CONC 32.5 g/dL (31-35); MEAN CORPUSCULAR VOLUME 100.2 fL (81-99); MONOCYTES # (AUTO) 0.7 (0.2-0.8); MONOCYTES % 8.7 % (4.4-11.3); NEUTROPHILS # (AUTO) 4.6 (2.1-6.9); NEUTROPHILS % 54.9 % (38.7-80.0); PLATELET COUNT 181 x10e3/uL (140-360); RED BLOOD COUNT 4.23 x10e6/uL (3.6-5.1); RED CELL DISTRIBUTION WIDTH 12.8 % (11.7-14.4)
[2023-02-07 14:58] LABS: ANION GAP 13.4 mmol/L (8-16); CALCIUM 9.4 mg/dL (8.4-10.2); CREATININE, SERUM 1.3 mg/dL (0.57-1.11); POTASSIUM 5.4 mmol/L (3.5-5.1)
[~2023-02-09] MED LIST changes: +ACETAMINOPHEN 1000 MG/100 ML 100 ML IV ONE; -B&O 60MG R/S 60 MG SUPP PR ONE; -IOPAMIDOL 300MG/ML 50ML INFUS..BTL IV ONE; +IOPAMIDOL 610MG/1ML 300 MG/ML VIAL IV ONE; +LACTATED RINGER'S 1,000 ML ONE; -MEROPENEM 1 GM VIAL ONE; +PHENAZOPYRIDINE HCL 100 MG TAB ONE
[2023-02-09 06:57] LABS: ANION GAP 13.5 mmol/L (8-16); CALCIUM 9.3 mg/dL (8.4-10.2); CREATININE, SERUM 1.11 mg/dL (0.57-1.11); POTASSIUM 4.5 mmol/L (3.5-5.1)
[2023-02-09 10:10] VITALS: BP 131/85
== END | disposition home or self-care (01) ==
LOC: OR 06:21
PROVIDERS: ATTEND Urology
DX: N39.41 Urge incontinence (principal); N39.0 Urinary tract infection, site not specified; N81.10 Cystocele, unspecified; N81.6 Rectocele; N95.2 Postmenopausal atrophic vaginitis; N32.89 Other specified disorders of bladder; Z01.810 Encounter for preprocedural cardiovascular examination; Z01.812 Encounter for preprocedural laboratory examination; Z79.899 Other long term (current) drug therapy
CPT/HCPCS: 36415 ×2; 52005; 52287; 57452; 74420; 80048 ×2; 85025; 93005; C1758; J0131; J0587; J1100; J1580; J2001; J2405; J2704; J3010; J7121; Q9967

== ENCOUNTER → 2024-09-15 | Day surgery (SDC) | payer MEDICARE ==
[~2024-09-15] MED LIST changes: +AIMOVIG AU70 MG/1 ML; -GENTAMICIN 80MG/NS 100 ML 200 ML IV ONE; +GLYCOPYRROLATE INJ 0.2 MG/ML VIAL ONE; -HYDROCODONE/APAP 10MG-325MG TAB ONE; -IOPAMIDOL 610MG/1ML 300 MG/ML VIAL IV ONE; -LACTATED RINGER'S 1,000 ML ONE; +LIDOCAINE PATCHES; +MIDAZOLAM HCL 2 MG/2 ML VIAL ONE; +NITROFURANTOIN100 MG PO; -POVIDONE IODINE 0.05% 0.05 % ML PO ONE; -SEVOFLURANE INHAL SOLN 250 ML PEN BTL ONE; +WELLBUTRIN XL300 MG PO
[2024-09-15 09:33] LABS: BASOPHILS # (AUTO) 0.1 (0.0-0.1); BASOPHILS % 0.5 % (0.0-1.0); EOSINOPHILS # (AUTO) 0.3 (0.0-0.4); EOSINOPHILS % 2.7 % (0.0-6.0); HEMATOCRIT 46.4 % (34.2-44.1); HEMOGLOBIN 14.7 g/dL (12.0-16.0); LYMPHOCYTES # (AUTO) 2.2 (1.0-3.2); MEAN CORPUSCULAR HEMOGLOBIN 32.5 pg (28-32); MEAN CORPUSCULAR HGB CONC 31.7 g/dL (31-35); MEAN CORPUSCULAR VOLUME 102.4 fL (81-99); MONOCYTES # (AUTO) 0.7 (0.2-0.8); NEUTROPHILS # (AUTO) 5.9 (2.1-6.9); NEUTROPHILS % 64.4 % (38.7-80.0); PLATELET COUNT 265 x10e3/uL (140-360); RED BLOOD COUNT 4.53 x10e6/uL (3.6-5.1); RED CELL DISTRIBUTION WIDTH 13.4 % (11.7-14.4); WHITE BLOOD COUNT 9.12 x10e3/uL (4.8-10.8)
[2024-09-15] MEDS: GENTAMICIN 80MG/NS 100 ML 200 ML IV ONE (09:36)
[2024-09-15] MEDS: LACTATED RINGER'S 1,000 ML ONE (09:37)
[2024-09-15 09:57] LABS: ANION GAP 14.9 mmol/L (8-16); CALCIUM 9.5 mg/dL (8.4-10.2); CREATININE, SERUM 1.12 mg/dL (0.57-1.11); POTASSIUM 4.9 mmol/L (3.5-5.1)
[2024-09-15] MEDS: MEROPENEM 1 GM VIAL ONE (11:07)
[2024-09-15] MEDS: PHENAZOPYRIDINE HCL 100 MG TAB PO ONE (11:25)
[2024-09-15 11:50] VITALS: BP 140/80; PULSE 72; RESP 16; O2SAT 98
== END | disposition home or self-care (01) ==
LOC: OR 08:17
PROVIDERS: ATTEND Urology
DX: N39.41 Urge incontinence (principal); N39.0 Urinary tract infection, site not specified; N81.10 Cystocele, unspecified; N81.6 Rectocele; N36.41 Hypermobility of urethra; N95.2 Postmenopausal atrophic vaginitis; N32.89 Other specified disorders of bladder; G47.33 Obstructive sleep apnea (adult) (pediatric); I10 Essential (primary) hypertension; M06.9 Rheumatoid arthritis, unspecified; F41.9 Anxiety disorder, unspecified; F32.A Depression, unspecified; Z88.1 Allergy status to other antibiotic agents; Z88.8 Allergy status to other drugs, medicaments and biological substances; Z79.899 Other long term (current) drug therapy
CPT/HCPCS: 36415; 52005; 52287; 74420; 80048; 85025; 87086; J0131; J0587; J1100; J1580; J2003; J2185; J2250; J2405; J2704; J3010; J7121

== ENCOUNTER → 2025-08-12 | Day surgery (SDC) | payer MEDICARE ==
[2025-08-05 12:58] LABS: BASOPHILS % 0.5 % (0.0-1.0); EOSINOPHILS % 3.0 % (0.0-6.0); LYMPHOCYTES % 28.3 % (18.0-39.1); MONOCYTES % 9.7 % (4.4-11.3); NEUTROPHILS % 58.1 % (38.7-80.0); RED CELL DISTRIBUTION WIDTH 13.5 % (11.7-14.4)
[2025-08-05 13:10] LABS: EST GLOMERULAR FILTRATION RATE 55.0 ML/MIN (>=60)
[~2025-08-12] MED LIST changes: -ACETAMINOPHEN 1000 MG/100 ML 100 ML IV ONE; +ACETAMINOPHEN/CODEINE 300MG - 30MG TAB ONE; -DEXAMETHASONE SOD PHOS INJ 4 MG/ML SDV ONE; +GENTAMICIN 80MG/NS 100 ML 200 ML IV ONE; -GLYCOPYRROLATE INJ 0.2 MG/ML VIAL ONE; +LACTATED RINGER'S 1,000 ML ONE; +MIRTAZAPINE15 MG PO; -ONDANSETRON HCL INJ 2MG/ML 2ML 2 MG/ML VIAL ONE; +PRAZOSIN HCL1 MG PO; +SEVOFLURANE INHAL SOLN 250 ML PEN BTL ONE; +VENTOLIN HFA18 GM INH
[2025-08-12] MEDS: ACETAMINOPHEN/CODEINE 300MG - 30MG TAB PO ONE (10:30)
[2025-08-12 10:50] VITALS: BP 141/64; PULSE 75; RESP 18; O2SAT 97
== END | disposition home or self-care (01) ==
LOC: OR 05:52
PROVIDERS: ATTEND Urology
DX: N39.41 Urge incontinence (principal); N32.81 Overactive bladder; N39.0 Urinary tract infection, site not specified; N81.10 Cystocele, unspecified; N81.6 Rectocele; N36.41 Hypermobility of urethra; N95.2 Postmenopausal atrophic vaginitis; N13.70 Vesicoureteral-reflux, unspecified; Q61.3 Polycystic kidney, unspecified; N32.89 Other specified disorders of bladder; I10 Essential (primary) hypertension; G47.33 Obstructive sleep apnea (adult) (pediatric); R05.9 Cough, unspecified; F41.8 Other specified anxiety disorders; E66.01 Morbid (severe) obesity due to excess calories; M06.9 Rheumatoid arthritis, unspecified; Z01.810 Encounter for preprocedural cardiovascular examination; Z01.812 Encounter for preprocedural laboratory examination; Z88.1 Allergy status to other antibiotic agents; Z88.8 Allergy status to other drugs, medicaments and biological substances; Z79.51 Long term (current) use of inhaled steroids; Z79.899 Other long term (current) drug therapy
CPT/HCPCS: 36415; 52005; 52287; 74420; 80048; 85025; 87086; 87186; 93005; C1758; J0587; J1580; J2003; J2250; J2704; J3010; J7121